=== PATIENT | male | born 1985 | race Two or more races ===

== ENCOUNTER 2022-11-22 11:50 | Emergency (ER) | payer SELFPAY ==
[2022-11-22 11:57] VITALS: BP 122/74; PULSE 94; RESP 18; TEMP 98.1; BMI 23.1
[2022-11-22] MEDS ORDERED: FLUORESCEIN NA 1 EA STRIP OD ONE (12:16)
[2022-11-22] MEDS ORDERED: FLUORESCEIN NA 1 EA STRIP ONE (12:29)
[2022-11-22] MEDS ORDERED: TETRACAINE 0.5% OPHTH SOLN 2 ML BOTTLE ONE (12:29)
[2022-11-22] MEDS ORDERED: TETRACAINE 0.5% HCL 0.6ML DROPPER.BOTTLE OU ONE (12:29)
== END 2022-11-22 13:06 | disposition home or self-care (01) ==
LOC: JERFT 11:50
DX: H57.89 Other specified disorders of eye and adnexa (principal)
CPT/HCPCS: 99283-25